=== PATIENT | female | born 1990 | race Caucasian/White ===

== ENCOUNTER 2018-03-13 23:53 | Emergency (ER) | payer SELFPAY ==
[2018-03-14 00:10] VITALS: BMI 21.6
[2018-03-14 00:14] VITALS: O2SAT 100
[2018-03-14] MEDS ORDERED: Morphine 4 mg/ml ISec IM STA ×2 (00:21→01:35)
[2018-03-14] MEDS ORDERED: Oxycodone/Acetaminophen 5/325 mg Tab PO STA (00:26)
--- NOTE | 2018-03-14 00:26 | ED PDOC ---
Arrival/HPI - General Chief Complaint: Abdominal Pain Time Seen by Provider: 03/13/18 23:58 Historian: Patient, Other (friend) - History of Present Illness Narrative History of Present Illness (Text): ou were treated in the ED today for hx of porphoria and on a morphine protocol when having a flare-up, and vising from [facility] with having abdomen pain flare-up with both knees discomfort which goes down your legs but otherwise without any sick contacts/new foods/nausea/vomiting/headache/dizziness/ difficulty breathing/chest pain/abdomen pain/numbness/tingling/loss of limb function/pain with urination/prior blood clots/prior cancer/hormonal use but recent travel from [facility]. 03/14/18 00:30 Time/Duration: 24 hours Past Medical History - Provider Review Nursing Documentation Reviewed: Yes - Travel History Have you recently traveled outside [place] w/in the past 3 mons?: No If Yes, travel location?: [facility] - Psychiatric Hx Substance Use: No Family/Social History - Physician Review Nursing Documentation Reviewed: Yes Family/Social History: No Known Family HX Smoking Status: Light Smoker < 10 Cigarettes Daily Hx Alcohol Use: Yes Frequency of alcohol use: Socially Hx Substance Use: No Allergies/Home Meds Allergies/Adverse Reactions: Allergies No Known Allergies Allergy (Verified 03/14/18 00:10) Home Medications: Home Meds Medication Instructions Recorded Confirmed No Known Home Med 03/14/18 03/14/18 Review of Systems - Review of Systems Constitutional: Normal Eyes: Normal ENT: Normal Respiratory: Normal Cardiovascular: Normal Gastrointestinal: Abdominal Pain Genitourinary Female: Normal Musculoskeletal: Arthralgias Skin: Normal Neurological: Normal Endocrine: Normal Hemo/Lymphatic: Normal Psychiatric: Normal Physical Exam Vital Signs Reviewed: Yes Vital Signs Temp Pulse Resp BP Pulse Ox 03/14/18 00:10 98 F 83 18 126/89 100 Temperature: Afebrile Blood Pressure: Hypertensive Pulse: Regular Respiratory Rate: Normal Appearance: Positive for: Well-Appearing, Non-Toxic, Comfortable Pain Distress: None Mental Status: Positive for: Alert and Oriented X 3 - Systems Exam Head: Present: Atraumatic, Normocephalic Pupils: Present: PERRL Extroacular Muscles: Present: EOMI Conjunctiva: Present: Normal Ears: Present: Normal Mouth: Present: Moist Mucous Membranes Pharnyx: Present: Normal Nose (External): Present: Atraumatic Nose (Internal): Present: Normal Inspection Neck: Present: Normal Range of Motion Respiratory/Chest: Present: Clear to Auscultation, Good Air Exchange Cardiovascular: Present: Regular Rate and Rhythm Abdomen: No: Tenderness, Distention, Normal Bowel Sounds, Peritoneal Signs, Rebound, Guarding, McBurney's Point Tender, Rovsing's Sign Present, Hernias, Feeding Tubes, Ostomy Tubes, Mass/Organomegaly, Scars, Other Genitourinary/Pelvic Exam: Present: Normal External Genitalia Back: Present: Normal Inspection Upper Extremity: Present: Normal Inspection Lower Extremity: Present: Normal Inspection Neurological: Present: GCS=15, CN II-XII Intact, Speech Normal, Motor Func Grossly Intact Skin: Present: Warm, Normal Color Psychiatric: Present: Alert, Oriented x 3, Normal Insight, Normal Concentration Medical Decision Making ED Course and Treatment: you were treated in the ED today for hx of porphyria and on a morphine protocol when having a flare-up, and vising from [facility] with having abdomen pain flare-up with both knees discomfort which goes down your legs but otherwise without any sick contacts/new foods/nausea/vomiting/headache/dizziness/ difficulty breathing/chest pain/abdomen pain/numbness/tingling/loss of limb function/pain with urination/prior blood clots/prior cancer/hormonal use but recent travel from [facility]. You were otherwise breathing easily, smiling with your friend, good strength/sensation, walking easily, clear lungs, no specific abdomen tenderness, no both knees swelling/tenderness or redness or both lower legs redness/swelling/tenderness and otherwise both upper/lower extremities warm/sensation/pink/full range of motion/non-tender with good pulses , pink lips, no fever temp 98, stable heart rate 83, stable breathing rate 18, excellent oxygen level 100% room air, elevated blood pressure 126/89 which we recommend repeat in 2-3 days primary care office to determine further treatment , urine test negative, morphine, zofran, observation done in the ED with improvement, counselled to have laboratory/ecg/radiology work-up/further observation but you refused and cautioned for complications/ but you stated you are here for flare-up treatment which you have had in the past and thus wanted to go home with friend. 1. Recommend percoct as directed for pain tomorrow and dont' work/drive/drink alcohol when using. 2. Recommend follow-up primary care 1 days to review symptoms, further work-up as directed, referral to gastroenterology clinic. 3. If any worsening pain, fever, chills, nausea, vomiting, difficulty breathing, numbness, loss of limb function, pain with urination or any medical condition then return to the ED. 03/14/18 00:23 03/14/18 00:24 03/14/18 00:24 03/14/18 00:27 03/14/18 00:31 Reassessment Condition: Re-examined, Improved Disposition/Present on Arrival - Present on Arrival Any Indicators Present on Arrival: Yes History of DVT/PE: No History of Uncontrolled Diabetes: No Urinary Catheter: No History of Decub. Ulcer: No History Surgical Site Infection Following: None - Disposition Have Diagnosis and Disposition been Completed?: Yes Diagnosis: Porphyria Disposition: AGAINST MEDICAL ADVICE Disposition Time: 00:31 Patient Plan: Discharge Condition: IMPROVED Discharge Instructions (ExitCare): Porphyrias Additional Instructions: ou were treated in the ED today for hx of porphyria and on a morphine protocol when having a flare-up, and vising from [facility] with having abdomen pain flare-up with both knees discomfort which goes down your legs but otherwise without any sick contacts/new foods/nausea/vomiting/headache/dizziness/ difficulty breathing/chest pain/abdomen pain/numbness/tingling/loss of limb function/pain with urination/prior blood clots/prior cancer/hormonal use but recent travel from [facility]. You were otherwise breathing easily, smiling with your friend, good strength/sensation, walking easily, clear lungs, no specific abdomen tenderness, no both knees swelling/tenderness or redness or both lower legs redness/swelling/tenderness and otherwise both upper/lower extremities warm/sensation/pink/full range of motion/non-tender with good pulses , pink lips, no fever temp 98, stable heart rate 83, stable breathing rate 18, excellent oxygen level 100% room air, elevated blood pressure 126/89 which we recommend repeat in 2-3 days primary care office to determine further treatment , urine test negative, morphine, zofran, observation done in the ED with improvement, counselled to have laboratory/ecg/radiology work-up/further observation but you refused and cautioned for complications/ but you stated you are here for flare-up treatment which you have had in the past and thus wanted to go home with friend. 1. Recommend percoct as directed for pain tomorrow and dont' work/drive/drink alcohol when using. 2. Recommend follow-up primary care 1 days to review symptoms, further work-up as directed, referral to gastroenterology clinic. 3. If any worsening pain, fever, chills, nausea, vomiting, difficulty breathing, numbness, loss of limb function, pain with urination or any medical condition then return to the ED.
[2018-03-14 01:51] VITALS: BP 124/72; PULSE 68; RESP 16; TEMP 97.9
== END 2018-03-14 01:50 | disposition left against medical advice (07) ==
LOC: ED 23:53
DX: E80.20 Unspecified porphyria (principal); F17.210 Nicotine dependence, cigarettes, uncomplicated
CPT/HCPCS: 96372; 99283; J2270